=== PATIENT | female | born 1970 | race Caucasian/White ===

== ENCOUNTER → 2020-11-26 | Outpatient (CLI) | payer OTHER ==
[~2020-11-26] MED LIST: ASPIR 8181 MG PO; CYANOCOBAL1000 MCG/1 SC; DESITIN CREAM 660 GM TOP; DOME-PASTE BANDA1 EA TOP; FERROUS SULFAT325 M2 PO; LASIX TAB 20 MG20 MG PO; LASIX20 MG PO; LEVAQUIN250 MG PO; LEVAQUIN500 MG PO; LEVAQUIN750 MG PO; NYSTATIN1 EAC2 TOP; PANTOPRAZOLE SO20 MG PO; VANCOCIN 125MG/2.5ML IV; VENTOLIN HFA 66.7 GM INH; VITAMIN C 500500 MG PO
== END ==
LOC: WCC 13:55
PROC: 0JBN0ZZ Excision of Right Lower Leg Subcutaneous Tissue and Fascia, Open Approach (ICD-10-PCS; principal; 2020-11-26)
DX: L97.812 Non-pressure chronic ulcer of other part of right lower leg with fat layer exposed (principal); R60.1 Generalized edema; I89.0 Lymphedema, not elsewhere classified; F79 Unspecified intellectual disabilities; M20.60 Acquired deformities of toe(s), unspecified, unspecified foot; B95.7 Other staphylococcus as the cause of diseases classified elsewhere

== ENCOUNTER → 2020-12-03 | Outpatient (CLI) | payer OTHER | LOC: WCC 13:50 | PROC: 0JBN0ZZ Excision of Right Lower Leg Subcutaneous Tissue and Fascia, Open Approach (ICD-10-PCS; principal; 2020-12-03) | DX: L97.812 Non-pressure chronic ulcer of other part of right lower leg with fat layer exposed (principal); R60.1 Generalized edema; I89.0 Lymphedema, not elsewhere classified; F79 Unspecified intellectual disabilities; M20.60 Acquired deformities of toe(s), unspecified, unspecified foot; B95.7 Other staphylococcus as the cause of diseases classified elsewhere; Z88.0 Allergy status to penicillin ==

== ENCOUNTER → 2020-12-06 | Outpatient (CLI) | payer OTHER | LOC: WCC 09:47 | DX: L97.911 Non-pressure chronic ulcer of unspecified part of right lower leg limited to breakdown of skin (principal) ==

== ENCOUNTER → 2020-12-10 | Outpatient (CLI) | payer OTHER | LOC: WCC 13:54 | PROC: 0JBN0ZZ Excision of Right Lower Leg Subcutaneous Tissue and Fascia, Open Approach (ICD-10-PCS; principal; 2020-12-10) | DX: L97.812 Non-pressure chronic ulcer of other part of right lower leg with fat layer exposed (principal); Z88.0 Allergy status to penicillin; R60.1 Generalized edema; I89.0 Lymphedema, not elsewhere classified; F79 Unspecified intellectual disabilities; M21.969 Unspecified acquired deformity of unspecified lower leg; B95.8 Unspecified staphylococcus as the cause of diseases classified elsewhere ==

== ENCOUNTER → 2020-12-13 | Outpatient (CLI) | payer OTHER | LOC: WCC 09:31 | DX: S81.801A Unspecified open wound, right lower leg, initial encounter (principal); X58.XXXA Exposure to other specified factors, initial encounter | CPT/HCPCS: G0463 ==

== ENCOUNTER → 2020-12-17 | Outpatient (CLI) | payer OTHER | LOC: WCC 10:00 | PROC: 0JBN0ZZ Excision of Right Lower Leg Subcutaneous Tissue and Fascia, Open Approach (ICD-10-PCS; principal; 2020-12-17) | DX: L97.812 Non-pressure chronic ulcer of other part of right lower leg with fat layer exposed (principal); R60.1 Generalized edema; I89.0 Lymphedema, not elsewhere classified; F79 Unspecified intellectual disabilities; M20.60 Acquired deformities of toe(s), unspecified, unspecified foot; B95.7 Other staphylococcus as the cause of diseases classified elsewhere; Z88.0 Allergy status to penicillin ==

== ENCOUNTER → 2020-12-20 | Outpatient (CLI) | payer OTHER | LOC: WCC 09:53 | PROC: 2W1QX6Z Compression of Right Lower Leg using Pressure Dressing (ICD-10-PCS; principal; 2020-12-20) | DX: L97.812 Non-pressure chronic ulcer of other part of right lower leg with fat layer exposed (principal); I10 Essential (primary) hypertension; Z88.0 Allergy status to penicillin ==

== ENCOUNTER → 2020-12-24 | Outpatient (CLI) | payer OTHER | LOC: WCC 09:51 | DX: S81.801A Unspecified open wound, right lower leg, initial encounter (principal); X58.XXXA Exposure to other specified factors, initial encounter | CPT/HCPCS: G0463 ==

== ENCOUNTER → 2020-12-26 | Outpatient (CLI) | payer OTHER | LOC: WCC 10:00 | PROC: 2W1RX6Z Compression of Left Lower Leg using Pressure Dressing (ICD-10-PCS; principal; 2020-12-26) | PROC: 2W1QX6Z Compression of Right Lower Leg using Pressure Dressing (ICD-10-PCS; 2020-12-26) | DX: I96 Gangrene, not elsewhere classified (principal); L97.812 Non-pressure chronic ulcer of other part of right lower leg with fat layer exposed; Z88.0 Allergy status to penicillin; Z88.1 Allergy status to other antibiotic agents; Z88.8 Allergy status to other drugs, medicaments and biological substances ==

== ENCOUNTER → 2021-01-02 | Outpatient (CLI) | payer OTHER | LOC: WCC 10:30 | PROC: 0JBN0ZZ Excision of Right Lower Leg Subcutaneous Tissue and Fascia, Open Approach (ICD-10-PCS; principal; 2021-01-02) | DX: I96 Gangrene, not elsewhere classified (principal); L97.812 Non-pressure chronic ulcer of other part of right lower leg with fat layer exposed; I89.0 Lymphedema, not elsewhere classified; F79 Unspecified intellectual disabilities; M20.60 Acquired deformities of toe(s), unspecified, unspecified foot; Z79.2 Long term (current) use of antibiotics; B95.7 Other staphylococcus as the cause of diseases classified elsewhere; Z88.0 Allergy status to penicillin ==

== ENCOUNTER → 2021-01-15 | Outpatient (CLI) | payer OTHER | LOC: WCC 13:54 | DX: L97.519 Non-pressure chronic ulcer of other part of right foot with unspecified severity (principal); I89.0 Lymphedema, not elsewhere classified; M20.60 Acquired deformities of toe(s), unspecified, unspecified foot; B95.8 Unspecified staphylococcus as the cause of diseases classified elsewhere; F79 Unspecified intellectual disabilities | CPT/HCPCS: 97597 ==

== ENCOUNTER → 2021-01-23 | Outpatient (CLI) | payer OTHER | LOC: WCC 10:24 | DX: I87.2 Venous insufficiency (chronic) (peripheral) (principal); I89.0 Lymphedema, not elsewhere classified; L97.211 Non-pressure chronic ulcer of right calf limited to breakdown of skin; R60.1 Generalized edema; F79 Unspecified intellectual disabilities; M20.60 Acquired deformities of toe(s), unspecified, unspecified foot; B95.7 Other staphylococcus as the cause of diseases classified elsewhere; Z88.0 Allergy status to penicillin; Z79.899 Other long term (current) drug therapy | CPT/HCPCS: 97597 ==

== ENCOUNTER → 2021-01-30 | Outpatient (CLI) | payer OTHER | LOC: WCC 10:30 | DX: L97.912 Non-pressure chronic ulcer of unspecified part of right lower leg with fat layer exposed (principal) ==

== ENCOUNTER 2021-02-20 11:04 | Inpatient (IN) | payer OTHER ==
[~2021-02-20] VITALS: Ht 152.4 cm; Wt 90.3 kg
[~2021-02-20 11:04] MED LIST changes: -LASIX20 MG PO; -PANTOPRAZOLE SO20 MG PO
[2021-02-20 14:59] LABS: HEMOGLOBIN 11.4 gm/dl (12.3-15.3); RED BLOOD COUNT 4.39 M/UL (4.00-5.10); WHITE BLOOD COUNT 8.6 K/UL (4.5-11.0)
[2021-02-20 15:16] LABS: BUN/CREATININE RATIO 26 (0-10)
[2021-02-20] MEDS ORDERED: LASIX20 MG PO (20:38)
[2021-02-20] MEDS ORDERED: PANTOPRAZOLE SO20 MG PO (20:39)
[2021-02-21 08:29] LABS: HEMOGLOBIN 9.6 gm/dl (12.3-15.3); RED BLOOD COUNT 3.57 M/UL (4.00-5.10)
[2021-02-21 08:46] LABS: BUN/CREATININE RATIO 20 (0-10)
--- NOTE | 2021-02-22 02:45 | NUR ---
PATIENT UNNA BOOTS LOOSE AND SOILED. ONLY UNNA BOOT MEDICATED WRAP IN PLACE. ORDERS REVIEWED AND ORDER NOTES TO APPLY UNNA BOOTS, THEN GUAZE THEN LISSET WRAP ORDERED ON 02/20. PREVIOUS APPLICATION PRIOR TO MY CARE ONLY WAS UNNA BOOTS MEDICATED GUAZE BUT NOT THE GUAZE AND LISSET WRAP COVERING. UNNA BOOTS ALICE NOTED REMOVED AND REAPPLIED PER ORDER. PATIENT TOLERATED WELL.
[2021-02-22 03:43] LABS: HEMOGLOBIN 9.7 gm/dl (12.3-15.3); RED BLOOD COUNT 3.65 M/UL (4.00-5.10); WHITE BLOOD COUNT 5.7 K/UL (4.5-11.0)
--- NOTE | 2021-02-23 16:31 | NUR ---
AN ORDER WAS PLACED FOR STO URINALYSIS FOR THIS PT. PT REFUSED A HAMILTON CATHETER AND REFUSED BEING STRAIGHT CATHED FOR THE UA. PT IS CURRENTLY UNABLE TO USE A BEDSIDE TOILET OR THE RESTROOM. MD NOTIFIED AND AWARE THAT THE CURRENT SPECIMEN CANNOT BE OBTAINED. WILL CONTINUE TO MONITOR.
[2021-02-24 07:50] LABS: HEMOGLOBIN 9.4 gm/dl (12.3-15.3); RED BLOOD COUNT 3.54 M/UL (4.00-5.10); WHITE BLOOD COUNT 6.3 K/UL (4.5-11.0)
--- NOTE | 2021-02-24 19:12 | NUR ---
DISCUSSED WITH PT THE IMPORTANCE OF OBTAINING A URINE SPECIMEN TO RUN TESTS. DISCUSSED WITH PT THE OPTION OF A HAMILTON CATHETER VS STRAIGHT CATH VS BED SALAMANCA FOR A SPECIMEN. PT HAS REFUSED THE CATHETERIZATION AND STATED THAT SHE WILL CONSIDER USING THE BED SALAMANCA. PT HAS NOT VOIDED ALL DAY AND HAS BEEN DRY WHEN THE CLIENT [employer] HAVE CHECKED HER BRIEF. WILL PASS ALONG TO NIGHT SHIFTTO TRY AND OBTAIN A URINE SPECIMEN VIA BED SALAMANCA. WILL CONTINUE TO MONITOR PT FOR CHANGES.
--- NOTE | 2021-02-25 04:01 | NUR ---
0030 IVF DECREASED TO 30 ML/HR
--- NOTE | 2021-02-25 06:30 | NUR ---
02/24/21 2130 PT REFUSED TO GIVE ANY URINE
[2021-02-25 09:31] LABS: HEMOGLOBIN 9.5 gm/dl (12.3-15.3); RED BLOOD COUNT 3.54 M/UL (4.00-5.10); WHITE BLOOD COUNT 6.1 K/UL (4.5-11.0)
== END 2021-02-25 20:02 | disposition short-term general hospital (02) | DRG 603 ==
LOC: ER1 11:04 → CDU 17:05 → M/S 18:08
PROVIDERS: Nurse Practitioner; Physician Assistant; Physician Assistant Medical; ADMIT Family Medicine
PROC: 0HDLXZZ Extraction of Left Lower Leg Skin, External Approach (ICD-10-PCS; principal; 2021-02-20)
PROC: 0HDKXZZ Extraction of Right Lower Leg Skin, External Approach (ICD-10-PCS; 2021-02-20)
DX: L03.115 Cellulitis of right lower limb (principal); N17.9 Acute kidney failure, unspecified; N13.30 Unspecified hydronephrosis; Z20.822 Contact with and (suspected) exposure to COVID-19; I89.0 Lymphedema, not elsewhere classified; I87.8 Other specified disorders of veins; E87.6 Hypokalemia; E83.42 Hypomagnesemia; D64.9 Anemia, unspecified; J45.998 Other asthma; Z86.73 Personal history of transient ischemic attack (TIA), and cerebral infarction without residual deficits; Z85.41 Personal history of malignant neoplasm of cervix uteri; Z88.0 Allergy status to penicillin; Z90.49 Acquired absence of other specified parts of digestive tract
CPT/HCPCS: 36415; 73590; 80048; 80053; 80076; 80202; 82550; 82553; 83605; 83690; 83735; 84484; 85025; 85027; 85652; 86140; 87040; 87070; 87077; 87186; 87205; 93005; 96365; 96366; 96367; 96375; 97110; 97163; 97166; 99284; C9113; J1650; J1956; J3370; J7030; J7070; U0002

== ENCOUNTER → 2021-02-20 | Outpatient (CLI) | payer OTHER | LOC: WCC 09:52 | DX: Z53.8 Procedure and treatment not carried out for other reasons (principal) | CPT/HCPCS: 87070; 87077; 87186; 87205 ==

== ENCOUNTER 2022-02-19 19:24 | Emergency (ER) | payer OTHER ==
[~2022-02-19 19:24] MED LIST changes: +LASIX20 MG PO; +PANTOPRAZOLE SO20 MG PO
[2022-02-19 21:57] LABS: HEMOGLOBIN 9.7 gm/dl (12.3-15.3); RED BLOOD COUNT 3.3 M/UL (4.00-5.10); WHITE BLOOD COUNT 12.4 K/UL (4.5-11.0)
== END 2022-02-20 21:00 | disposition short-term general hospital (02) ==
LOC: ER1 19:24
PROVIDERS: Family Medicine
DX: N19 Unspecified kidney failure (principal); N13.2 Hydronephrosis with renal and ureteral calculous obstruction; K21.9 Gastro-esophageal reflux disease without esophagitis; Z20.822 Contact with and (suspected) exposure to COVID-19
CPT/HCPCS: 71045; 80053; 83605; 83735; 84100; 85025; 87040; 87077; 87086; 87186; 93005; 96374; 96375; 99284; J0696; J1100; J1200; U0002